=== PATIENT | male | born 1965 | race Caucasian/White ===

== ENCOUNTER → 2021-07-15 13:49 | Outpatient (BNVA) | payer OTHER, SELFPAY | PROVIDERS: Visit Provider Surgery | DX: Z20.822 Contact with and (suspected) exposure to COVID-19 (principal); Z01.812 Encounter for preprocedural laboratory examination | CPT/HCPCS: 87635 ==

== ENCOUNTER 2021-08-01 08:44 | Day surgery (SDC) | payer OTHER, SELFPAY ==
[2021-07-15 10:15] VITALS: BMI 26.9
[2021-08-01] VITALS (9 sets, daily range): BP systolic 113–130; BP diastolic 67–78; PULSE 65–80; RESP 14–18; TEMP 36.1–36.7; O2SAT 94–100
[2021-08-01] MEDS: sodium chloride 0.9% 1,000 ML 30 ML IV (09:20)
--- NOTE | 2021-08-01 10:12 | W.PM.OPSUD ---
Surgery/Procedure H&P Update DATE OF PROCEDURE: August 01, 2021 DATE H&P PERFORMED: 07/02/21 H&P UPDATE INFORMATION: No changes to prior documentation PREOP DIAGNOSIS: Symptomatic cholelithiasis. PLANNED PROCEDURE: Operation Date: 08/01/21 10:45 Proposed Procedures p Laparoscopic Cholecystectomy 65964 K80.10(Not Applicable) - Owen Gramajo MD
--- NOTE | 2021-08-01 10:17 | ANES.PREANE2 ---
Pre-Anesthetic Assessment Height/Weight: Height 1.85 m Weight 92.533 kg Temp Pulse Resp BP Pulse Ox 97.5 F L 78 18 129/75 96 08/01/21 09:17 08/01/21 09:17 08/01/21 09:17 08/01/21 09:17 08/01/21 09:17 Preop Diagnosis: Symptomatic cholelithiasis. Operation Date: 08/01/21 10:45 Proposed Procedures p Laparoscopic Cholecystectomy 87982 K80.10(Not Applicable) - Owen Gramajo MD Familial anesthetic complications: None Was Beta Abdoul taken within 24 hours: N/A Was Clonidine taken within 24 hours: N/A Last intake: Intake Last Liquid Date 07/31/21 Last Liquid Time 19:40 Last Solid Date 07/31/21 Last Solid Time 19:40 Social No alcohol and No tobacco Exam alert, oriented x 3, clear to auscultation bilaterally and regular rate & rhythm Airway Submandibular: within normal limits Cervical ROM: within normal limits Mallampati: Class II Comments: Comments: Missing multiple pre molars, molars History/ROS No significant history except as noted Pulmonary None reported CV/HEM None reported METS > 4 None reported Hepatic None reported GI Gastroesophageal Reflux Disease (Well controlled ) Cholelithiasis Metabolic None reported Musc/skel None reported Neuropsych None reported Anesthetic Plan ASA status: 2 Anesthesia: Anesthesia Evaluation and General Other: We discussed risk and benefits of general anesthesia including PONV, sore throat (sometimes severe), corneal abrasion, positioning and peripheral nerve injuries, life threatening allergic reaction, post operative ICU admission requiring prolonged intubation, stroke, heart attack, , and rare incidences of recall. Patient consents to proceed with general anesthesia. Plan GETA, pre op scopalamine patch. Risk of > 500 ml blood loss (7ml/kg in children): No Medications/Allergies Home Medications Medication Instructions Recorded Confirmed Last Taken Type loratadine 10 mg capsule 10 mg PO DAILY 07/15/21 08/01/21 07/31/21 History pantoprazole 40 mg tablet,delayed 40 mg PO DAILY 07/15/21 08/01/21 07/31/21 History release Allergies Allergy/AdvReac Type Severity Reaction Status Date / Time Penicillins Allergy Unknown Verified 08/01/21 09:10 Data Anesthesia Cardiac Studies: No Data to Display
[2021-08-01] MEDS: scopolamine 1.5 Patch 1 PATCH TRANSDERMA (10:19)
[2021-08-01] MEDS: clindamycin 900 MG/50 ML PREMIX 100 MG IV (10:58)
--- NOTE | 2021-08-01 11:56 | PM.OP ---
Operative Report Date of procedure: August 01, 2021 Pre-op diagnosis: Preop Diagnosis Symptomatic cholelithiasis. Post-op diagnosis: Symptomatic cholelithiasis. Procedure done: Laparoscopic cholecystectomy. Pathology: Gallbladder. Surgeon: General Surgery Owen Gramajo MD Anesthesia: General Estimated blood loss: 10 mL. Complications: None. Procedure: The patient was brought to the Operating Room and was placed in a supine position on the Operating Room table. General endotracheal anesthesia was induced. The abdomen was prepped and draped in a sterile fashion. A small vertical incision was carried out in the inferior aspect of the umbilicus. Blunt dissection was carried out down to the fascia, which was grasped with a Manish clamp. A stay suture of 0 Vicryl was placed on either side of the midline and the midline fascia was incised. The underlying peritoneum was opened bluntly and the Tia port was placed directly into the peritoneal cavity and was held in place with the inflatable balloon. The peritoneal cavity was insufflated with carbon dioxide. The laparoscope was used to inspect the abdominal cavity. No gross abnormalities were initially noted. A 5 millimeter port was placed in the epigastrium under direct vision. Two 5-millimeter ports were placed on the right side of the abdomen under direct vision. The gallbladder was grasped and was elevated. The patient had chronic and fairly dense adhesions to the fundus of the gallbladder down to and involving the infundibular region. Blunt dissection and hydrodissection were carried out in the infundibular region of the gallbladder and the cystic duct and cystic artery were identified. The gallbladder was partially removed from the liver bed using cautery and the spatula to confirm the anatomy before the structures were clipped and divided. The gallbladder was then removed from the liver bed using cautery and the spatula. A very small hole was inadvertently made in the infundibulum during the dissection and a small amount of bile leaked which was recovered with suction. No stones were seen to have follow from the gallbladder. After the gallbladder had been removed from the liver bed, the laparoscope was moved to the epigastric port and the gallbladder was removed from the peritoneal cavity through the umbilical port site after being placed in a laparoscopic bag. The stay sutures of Vicryl were tied to each other at the umbilicus. An additional [id number] suture of 0 Vicryl was placed, closing the defect so that it was airtight. The perihepatic spaces were irrigated with saline and the liver bed was reinspected. No ongoing problems were seen. The remaining ports were removed from the abdominal wall and the pneumoperitoneum was evacuated. All skin incisions were closed using inverted interrupted sutures of 4-0 Vicryl. Benzoin and Steri-Strips were placed over the incisions and Band-Aids followed. The patient was taken to the Recovery Area in stable condition postoperatively.
[2021-08-01] MEDS: HYDROcodone-acetaminophen 5-325 mg Tablet 1 TAB PO (12:57)
--- NOTE | 2021-08-01 14:43 | ANE.PACU2 ---
Inpatient post-anesthesia follow up: Airway intact: Yes Vital signs: Temperature 97.8 F Pulse Rate 80 Respiratory Rate 16 Blood Pressure 122/77 Pulse Oximetry 94 Oxygen Delivery Me thod Room Air Oxygen Flow Rate 3 Fraction of Inspir ed Oxygen Hydration adequate: Yes Nausea and vomiting: No Pain level: 1 Mental status: Baseline
== END 2021-08-01 13:28 | disposition home or self-care (01) ==
PROVIDERS: Visit Provider Surgery
PROC: 0FT44ZZ Resection of Gallbladder, Percutaneous Endoscopic Approach (ICD-10-PCS; CPT 47562; principal; 2021-08-01 10:45)
DX: K80.10 Calculus of gallbladder with chronic cholecystitis without obstruction (principal); K21.9 Gastro-esophageal reflux disease without esophagitis
CPT/HCPCS: 47562; 88304; J1100; J1170; J2405; J2704; J2710; J3010; J3490; J7030

== ENCOUNTER 2024-04-10 06:06 | Emergency (ER) | payer OTHER, SELFPAY ==
[2024-04-10 06:25] VITALS: BP 115/82; PULSE 136; RESP 20; O2SAT 94; BMI 27.0
--- NOTE | 2024-04-10 06:34 | ED_ITS ---
HPI - Male Genitourinary 2 General: Chief complaint: Urogenital-Male Stated complaint: troubles peeing, low abd pain Time Seen by Provider: 04/10/24 06:11 Source: patient Mode of arrival: ambulatory Limitations: no limitations History of Present Illness: 58-year-old male who states he has not b een able to urinate since 8 PM last night he states he had some difficulty since Thursday with dribbling when he urinated but has had no urine production since 8 PM states he feels pressure at the tip of his penis also having suprapubic pain and feels like his bladder is full but unable to urinate no history of this in the past she denies any fevers. Denies any worse improved factors Associated symptoms: Deny nausea or vomiting Related Data Home Medications Medication Instructions Recorded Confirmed loratadine 10 mg capsule 10 mg PO DAILY 07/15/21 06/17/23 Previous Rx's Medication Instructions Recorded pantoprazole 40 mg tablet,delayed 40 mg PO DAILY for stomach #90 tabs 05/13/23 release prednisone 20 mg tablet 60 mg (3 x 20 mg) PO DAILY 5 days 06/17/23 #11 tabs naproxen 500 mg tablet 500 mg PO BID PRN inflammation #30 06/25/23 tabs tamsulosin 0.4 mg capsule (Flomax) 0.4 mg PO DAILY #10 caps 04/10/24 Allergies Allergy/AdvReac Type Severity Reaction Status Date / Time Penicillins Allergy Unknown Verified 06/25/23 10:52 Review of Systems 2 Const: Denies: fever(s), chills, body aches or change in appetite ENMT: Denies: throat pain or dental pain Card: Denies: chest pain Resp: Denies: dyspnea GI: Reports: abdominal pain; Denies: nausea, vomiting or diarrhea : Reports: difficulty urinating Musc: Denies: neck pain or back pain Skin/Breast: Denies: rash Neuro: Denies: headache(s) Physical Exam 2 Const: COMMON NORMALS: no acute distress, patient oriented x3 and healthy appearing HENMT: COMMON NORMALS: normocephalic and atraumatic HEAD & SCALP: n ormocephalic and atraumatic Eye: COMMON NORMALS: conjunctivae normal CONJUNCTIVA: Yes conjunctivae normal Neck/C-Spine: COMMON NORMALS: full ROM and supple Chest: COMMONS NORMALS: normal inspection of the chest Resp: COMMON NORMALS: normal respiratory effort Cardio: RATE: tachycardic GI: COMMON NORMALS: Normal to inspection, nondistended, normoactive bowel sounds present, Soft to palpation and no masses PALPATION: Yes Soft to palpation OTHER: Suprapubic tenderness Extremity: COMMON NORMALS: normal to inspection and full ROM Neuro: COMMON NORMALS: patient oriented x3, moves all extremities and no focal motor deficits Psych: COMMON NORMALS: mental status grossly normal, Normal thought process present and cooperative THOUGHT PROCESS: Normal thought process present Skin: COMMON NORMALS: no rashes or lesions noted and no wounds GENERAL SKIN EXAM: no rashes or lesions noted Course 2 Vital Signs: Vital signs: Vital Signs Pulse Rate 115 H 04/10/24 07:54 Respiratory Rate 16 04/10/24 06:40 Blood Pressure 122/78 04/10/24 07:54 Pulse Oximetry 91 04/10/24 07:54 Oxygen Delivery Me thod Room Air 04/10/24 07:08 MDM - Male Medical Decision Making Patient presents here with urinary retention he feels much improved here after Ren placement will start him on Flomax we will get him follow-up with urology he is return if worsening he understands agrees to plan. Medical Records I reviewed the patient's medical records. Lab Data I reviewed the patient's lab results. 04/10/24 06:35 04/10/24 06:35 Laboratory Results WBC 12.49 10^3/uL (3.29-11.43) H 04/10/24 06:35 RBC 5.20 10^6/uL (3.85-5.65) 04/10/24 06:35 Hgb 15.80 g/dL (11.27-16.99) 04/10/24 06:35 Hct 46.2 % (37-53) 04/10/24 06:35 MCV 88.8 fl (82-101) 04/10/24 06:35 MCH 30.4 pg (27-33) 04/10/24 06:35 MCHC 34.2 g/dL (30-55) 04/10/24 06:35 RDW 12.4 % (12.1-15.1) 04/10/24 06:35 Plt Count 180 10^3/cmm (157-399) 04/10/24 06:35 MPV 9.7 fL (7.4-10.4) 04/10/24 06:35 Neut % (Auto) 90.2 % 04/10/24 06:35 Lymph % (Auto) 2.9 % 04/10/24 06:35 Roberts % (Auto) 5.9 % 04/10/24 06:35 Eos % (Auto) 0.2 % 04/10/24 06:35 Baso % (Auto) 0.3 % 04/10/24 06:35 Neut # (Auto) 11.26 10^3/uL (1.8-7.7) H 04/10/24 06:35 Lymph # (Auto) 0.4 10^3/uL (0.8-4.8) L 04/10/24 06:35 Roberts # (Auto) 0.7 10^3/uL (0.2-0.9) 04/10/24 06:35 Eos # (Auto) 0.0 10^3/uL (0.0-0.8) 04/10/24 06:35 Baso # (Auto) 0.0 10^3/uL (0.0-0.1) 04/10/24 06:35 Nucleated RBC % (auto) 0 % 04/10/24 06:35 Nucleated RBCs # 0.0 /100WBC 04/10/24 06:35 Sodium 134 mmol/L (136-145) L 04/10/24 06:35 Potassium 3.8 mmol/L (3.5-5.1) 04/10/24 06:35 Chloride 99 mmol/L (98-107) 04/10/24 06:35 Carbon Dioxide 23 mmol/L (22-29) 04/10/24 06:35 Anion Gap 15.8 (5-19) 04/10/24 06:35 BUN 13 mg/dL (6-20) 04/10/24 06:35 Creatinine 1.4 mg/dL (0.7-1.2) H 04/10/24 06:35 GFR Calculation 51.9 mL/min (90-130) L 04/10/24 06:35 Glucose 139 mg/dL (65-115) H 04/10/24 06:35 Calculated Osmolality 280 mOsm/kg (285-295) L 04/10/24 06:35 Calcium 9.3 mg/dL (8.5-10.5) 04/10/24 06:35 Total Bilirubin 1.1 mg/dL (0.15-1.2) 04/10/24 06:35 AST 21 U/L (0-40) 04/10/24 06:35 ALT 42 U/L (0-41) H 04/10/24 06:35 Alkaline Phosphatase 238 U/L (40-130) H 04/10/24 06:35 Total Protein 6.5 g/dL (6.6-8.7) L 04/10/24 06:35 Albumin 3.9 g/dL (3.5-5.2) 04/10/24 06:35 Globulin 2.6 g/dL (1.3-4.6) 04/10/24 06:35 Urine Color Caswell (Yellow) A 04/10/24 06:59 Urine Appearance Clear (CLEAR) 04/10/24 06:59 Urine pH TNP 04/10/24 06:59 Ur Specific Tilly TNP 04/10/24 06:59 Urine Protein TNP 04/10/24 06:59 Urine Glucose (UA) TNP 04/10/24 06:59 Urine Ketones TNP 04/10/24 06:59 Urine Blood TNP 04/10/24 06:59 Urine Nitrate TNP 04/10/24 06:59 Urine Bilirubin TNP 04/10/24 06:59 Urine Urobilinogen TNP 04/10/24 06:59 Ur Leukocyte Esterase TNP 04/10/24 06:59 Urine RBC 6-10 /hpf (0-2) 04/10/24 06:59 Urine WBC 0-5 /hpf (0-5) 04/10/24 06:59 Ur Squamous Epith Cells 0-5 /hpf (0-5) 04/10/24 06:59 Amorphous Sediment Not Reportable 04/10/24 06:59 Urine Bacteria None /hpf (NONE) 04/10/24 06:59 No radiology studies performed this visit Discharge Plan Discharge Patient Disposition: Home Clinical Impression: Acute retention of urine Condition: Stable Prescriptions: New tamsulosin [Flomax] 0.4 mg capsule 0.4 mg PO DAILY Qty: 10 0RF No Action naproxen 500 mg tablet 500 mg PO BID PRN (Reason: inflammation) Qty: 30 0RF prednisone 20 mg tablet 60 mg PO DAILY 5 Days Qty: 11 0RF Rx Instructions: 3 tabs on day 1, 2 tabs on day 2-5 pantoprazole 40 mg tablet,delayed release (DR/EC) 40 mg PO DAILY Qty: 90 3RF loratadine 10 mg Capsule 10 mg PO DAILY Discharge Orders: Discharge ED (Routine); Ordered 04/10/24 Ordered By: Aly Ying Referrals: Mando Fairbanks DO [Primary Care Provider] - Discharge Diet: Advance as tolerated Discharge Activity: Resume usual activity Patient Instructions: Urinary Retention in Men (ED), Ren Catheter Placement and Care (ED) Coding Level of Care Code 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
[2024-04-10 06:40] VITALS: RESP 16; O2SAT 93
[2024-04-10] MEDS: morphine 4 mg/mL SDV 1 mL IVP (06:40)
[2024-04-10] MEDS: ondansetron 2 mg/ML SDV 2 mL 4 MG IVP (06:41)
[2024-04-10 06:51] LABS: Basophils % 0.3 %; Eosinophils % 0.2 %; Hematocrit 46.2 % (37-53); Lymphocytes # 0.4 10^3/uL (0.8-4.8); Lymphocytes % 2.9 %; Mean Corpuscular HGB Conc 34.2 g/dL (30-55); Mean Corpuscular Hemoglobin 30.4 pg (27-33); Mean Corpuscular Volume 88.8 fl (82-101); Mean Platelet Volume 9.7 fL (7.4-10.4); Monocytes # 0.7 10^3/uL (0.2-0.9); Monocytes % 5.9 %; Neutrophils # 11.26 10^3/uL (1.8-7.7); Neutrophils % 90.2 %; Nucleated Red Blood Cells % 0 %; Platelet Count 180 10^3/cmm (157-399); Red Cell Distribution Width 12.4 % (12.1-15.1); White Blood Count 12.49 10^3/uL (3.29-11.43)
[2024-04-10 07:03] LABS: Add Urine Microscopic? NO
[2024-04-10 07:07] LABS: Alanine Aminotransferase 42 U/L (0-41); Albumin Level 3.9 g/dL (3.5-5.2); Alkaline Phosphatase 238 U/L (40-130); Anion Gap 15.8 (5-19); Aspartate Amino Transferase 21 U/L (0-40); Blood Urea Nitrogen 13 mg/dL (6-20); Calcium 9.3 mg/dL (8.5-10.5); Carbon Dioxide 23 mmol/L (22-29); Chloride 99 mmol/L (98-107); Globulin 2.6 g/dL (1.3-4.6); Glomerular Filtration Rate 51.9 mL/min (90-130); Glucose 139 mg/dL (65-115); Osmolality Calculated 280 mOsm/kg (285-295); Potassium 3.8 mmol/L (3.5-5.1); Sodium 134 mmol/L (136-145); Total Bilirubin 1.1 mg/dL (0.15-1.2); Total Protein 6.5 g/dL (6.6-8.7)
[2024-04-10 07:08] VITALS: BP 115/82; PULSE 113; O2SAT 91
[2024-04-10 07:10] LABS: Creatinine Clr Calc Pharmacy 68.4116
--- NOTE | 2024-04-10 07:21 | PC.NURSE ---
took over pt care from ELIZABETH Archer at 0655.
--- NOTE | 2024-04-10 07:22 | PC.NURSE ---
after pt was given morphine by ELIZABETH Archer his O2 sat dropped into the 80s on multiple instances. this RN placed 1.5L of supplemental O2 on pt and improved his sat into the 90s. pt does not wear O2 at home.
[2024-04-10 07:25] LABS: Urine Appearance Clear (CLEAR); Urine Color Orange (Yellow)
[2024-04-10 07:26] LABS: WBC Urine 0-5 /hpf (0-5)
[2024-04-10 07:27] LABS: Charge for UA Resulting for Rev; Squamous Epithelial Cell Urine 0-5 /hpf (0-5)
[2024-04-10 07:54] VITALS: BP 122/78; PULSE 115; O2SAT 91
--- NOTE | 2024-04-13 08:10 | DCPLANNER ---
Referral sent to [facility]
== END 2024-04-10 08:00 | disposition home or self-care (01) ==
PROVIDERS: Emergency Provider Emergency Medicine; PCP Family Medicine
DX: R33.9 Retention of urine, unspecified (principal)
CPT/HCPCS: 51702; 80053; 81003; 85025; 96374; 96375; 99284; J2270; J2405